=== PATIENT | male | born 1960 | race Caucasian/White ===

== ENCOUNTER 2019-06-19 18:00 | Outpatient (RCR) | payer OTHER, SELFPAY ==
[2019-06-05 12:16] VITALS: PULSE 78
--- NOTE | 2019-07-02 09:55 | PCCPR ---
Program is temporarily suspended due to COVID outbreak.
--- NOTE | 2019-07-09 13:22 | PCCPR ---
Spoke with Anup today states he is walking apx 1 mile 6 times now. He did c/o feeling SOB when he bends over to tie his shoes. He is due to have a virtual apt with his Head Of Ict tomorrow. States he is out pulling weeds and asked if it would be ok for him to mow his yard with a push mower. He said it was not a self propelled mower. He did have open heart surgery and with the SOB and being out less than 3 months thought he should hold off unless the Head Of Ict gave him permission. Encouraged him to continue to walk daily and to do the stretching if possible. Discusses possibly initiating some strength trng before mowing. Reminding him of the literature and educational materials we gave him when he started. Let him know we would send him a packet with additional info he chose to have mailed to his home. Reinforced we will be closed for now through the end of July and will try to stay in touch weekly for updates and questions.
--- NOTE | 2019-07-16 11:17 | PCCPR ---
Spoke with Al. He states he just finished with a walk on the trails [email or web address]. He has been staying active and getting in yard work also. Will follow up with Al next week.
--- NOTE | 2019-07-23 14:32 | PCCPR ---
Check in completed with patient. No formal exercise but gets out in his yard to push mow atleast 3 times per week. States he still gets worn out easily which is why it takes him 3 days because he breaks it up into sections. He did say that his incisional discomfort is much better and he can touch his incision now without it being uncomfortable. No questions or concerns at this time. Will continue to follow weekly.
--- NOTE | 2019-07-30 13:45 | PCCPR ---
Weekly update call-Left message.
--- NOTE | 2019-08-06 15:23 | PCCPR ---
Weekly update call-informed patient of continued closure through the month of August due to the extension of the [facility] in [facility] order. No questions at this time.
--- NOTE | 2019-08-21 13:07 | PCCPR ---
Starting Bi-Weekly calls. Left message for patient.
== END 2019-06-19 23:59 | disposition home or self-care (01) ==
LOC: ANHCPREHAB 18:00
PROVIDERS: PCP Family Medicine; Visit Provider Specialist
DX: Z95.1 Presence of aortocoronary bypass graft (principal)
CPT/HCPCS: 93798